=== PATIENT | male | born 1970 | race Caucasian/White ===

== ENCOUNTER → 2020-09-11 14:58 | Outpatient (BNVA) | payer BC, SELFPAY | PROVIDERS: Family Provider General Practice; PCP Nurse Practitioner Family; Visit Provider Surgery | DX: Z20.822 Contact with and (suspected) exposure to COVID-19 (principal); K52.9 Noninfective gastroenteritis and colitis, unspecified | CPT/HCPCS: 87635 ==

== ENCOUNTER 2020-09-16 06:56 | Day surgery (SDC) | payer BC, SELFPAY ==
[2020-09-14 15:20] VITALS: BMI 33.5
[2020-09-16 07:25] VITALS: BP 120/83; PULSE 78; RESP 18; TEMP 36.5; O2SAT 99
[2020-09-16] MEDS: sodium chloride 0.9% 1,000 ML 30 ML IV (07:49)
--- NOTE | 2020-09-16 08:02 | ANES.PREANE2 ---
Pre-Anesthetic Assessment Pre-Anesthetic Assessment: Height/Weight: Height 1.83 m Weight 112.037 kg Temp Pulse Resp BP Pulse Ox 97.7 F 78 18 120/83 99 09/16/20 07:25 09/16/20 07:25 09/16/20 07:25 09/16/20 07:25 09/16/20 07:25 Preop Diagnosis: Family history of colon cancer Proposed Procedure: Operation Date: 09/16/20 08:00 Proposed Procedures p Colonoscopy 53814 K52.9(Not Applicable) - Dani Burns MD Familial anesthetic complications: none Was Beta Elliot taken within 24 hours: N/A Last intake: Intake Last Liquid Date 09/15/20 Last Liquid Time 23:00 Last Solid Date 09/14/20 Last Solid Time 19:00 Social: Social History: Alcohol (6 beer day) and No tobacco Exam: Pre-Anes Outpt Exam: alert, oriented x 3, clear to auscultation bilaterally and regular rate & rhythm Airway: Submandibular: WNL Cervical ROM: WNL MP: 2 Dentition: Full Pulmonary: Pulmonary: None reported CV/HEM: CV/HEM: HTN : : None reported Hepatic: Hepatic: None reported GI: GI: GERD Metabolic: Metabolic: None reported Musc/skel: Musc/skel: None reported Neuropsych: Neuropsych: None reported Anesthetic Plan: ASA status: 2 Anesthesia: MAC Meds/Allergies Current Medications: Current Medications Generic Name Dose Route Start Last Admin Trade Name Freq PRN Reason Stop Dose Admin Sodium Chloride 1,000 mls @ 30 ml s/hr 09/16/20 07:00 09/16/20 07:49 Sodium Chloride 0.9% IV 09/17/20 06:59 30 mls/hr .Q24H CONSUELO Administration PFSH Anesthesia PFSH: Medical History Family history of colon cancer Family History Other Cancer Denies family history of Anesthesia complication Bleeding disorder Data Anesthesia Cardiac Studies: No Data to Display
--- NOTE | 2020-09-16 08:03 | W.PM.OPSUD ---
Surgery/Procedure H&P Update DATE OF PROCEDURE: September 16, 2020 DATE H&P PERFORMED: 08/19/20 H&P UPDATE INFORMATION: I have reviewed H&P completed within last 30 days, I have examined patient prior to procedure and No changes to prior documentation PREOP DIAGNOSIS: Family history of colon cancer PRIMARY INDICATION FOR PROCEDURE: The same PLANNED PROCEDURE: Operation Date: 09/16/20 08:00 Proposed Procedures p Colonoscopy 92402 K52.9(Not Applicable) - Dani Burns MD
[2020-09-16 08:21] VITALS: BP 121/83; PULSE 84; RESP 16; TEMP 36.8; O2SAT 100
--- NOTE | 2020-09-16 08:24 | ANE.PACU2 ---
Inpatient post-anesthesia follow up: Airway intact: Yes Vital signs: Temperature 98.2 F Pulse Rate 84 Respiratory Rate 16 Blood Pressure 121/83 Pulse Oximetry 100 Oxygen Delivery Me thod Nasal Cannula Oxygen Flow Rate 2 Fraction of Inspir ed Oxygen Hydration adequate: Yes Nausea and vomiting: No Pain level: 1 Mental status: Baseline
[2020-09-16 08:36] VITALS: BP 120/91; PULSE 76; RESP 16; TEMP 36.7; O2SAT 100
--- NOTE | 2020-09-16 12:00 | ANE.PACU2 ---
Inpatient post-anesthesia follow up: Airway intact: Yes Vital signs: Temperature 98.1 F Pulse Rate 76 Respiratory Rate 16 Blood Pressure 120/91 Pulse Oximetry 100 Oxygen Delivery Me thod Room Air Oxygen Flow Rate 2 Fraction of Inspir ed Oxygen Hydration adequate: Yes Nausea and vomiting: No Pain level: 1 Mental status: Baseline
== END 2020-09-16 08:57 | disposition home or self-care (01) ==
PROVIDERS: PCP Nurse Practitioner Family; Visit Provider Surgery
PROC: 0DJD8ZZ Inspection of Lower Intestinal Tract, Via Natural or Artificial Opening Endoscopic (ICD-10-PCS; CPT 45378; principal; 2020-09-16 08:00)
DX: Z12.11 Encounter for screening for malignant neoplasm of colon (principal); Z80.0 Family history of malignant neoplasm of digestive organs; Z83.71 Family history of colonic polyps; I10 Essential (primary) hypertension; K21.9 Gastro-esophageal reflux disease without esophagitis; Z79.82 Long term (current) use of aspirin
CPT/HCPCS: 45378; 96360; J2704; J7030